=== PATIENT | female | born 1965 | race Caucasian/White ===

== ENCOUNTER → 2018-01-27 13:26 | Emergency (ER) | payer SELFPAY ==
[~2018-01-27 13:26] MED LIST: HYDROcodone/Acetaminophen 10/325 mg Tablet ONE; Ketorolac Tromethamine 30 MG/ML VIAL ONE; Ondansetron ODT 4 MG TAB ONE
== END | disposition home or self-care (01) ==
LOC: ERS 13:26
DX: M54.16 Radiculopathy, lumbar region (principal); I25.10 Atherosclerotic heart disease of native coronary artery without angina pectoris; F41.9 Anxiety disorder, unspecified; E11.9 Type 2 diabetes mellitus without complications
CPT/HCPCS: 96372; J1885; Q0162

== ENCOUNTER 2018-10-23 14:53 | Emergency (ER) | payer SELFPAY ==
[2018-10-23] MEDS ORDERED: Proparacaine 0.5% Opth 15 ML BOT ONE (15:51)
== END 2018-10-23 16:46 | disposition home or self-care (01) ==
LOC: ERS 14:53
DX: H10.9 Unspecified conjunctivitis (principal); I25.10 Atherosclerotic heart disease of native coronary artery without angina pectoris; E11.9 Type 2 diabetes mellitus without complications; F41.9 Anxiety disorder, unspecified
CPT/HCPCS: 36416; 99283

== ENCOUNTER 2019-07-11 12:04 | Inpatient (IN) | payer SELFPAY ==
[2019-07-11] MEDS ORDERED: Vancomycin 1 GM/200 ML BAG ONE (12:35)
[2019-07-11] MEDS ORDERED: Cefepime 2 GM VIAL ONE (12:35)
[2019-07-11 12:43] LABS: #Basophils 0.1 thou/uL (0.0-0.2); #Eosinphils 0.1 thou/uL (0.0-0.7); #Monocytes 0.5 thou/uL (0.11-0.59); #Neutrophils 6.2 thou/uL (1.40-6.50); %Basophils 0.7 % (0.0-1.0); %Eosinophils 1.3 % (0.0-10.0); %Lymphocytes 22.1 % (21.0-51.0); %Monocytes 5.9 % (0.0-10.0); Hemoglobin 11.8 g/dL (12.0-16.0); Mean Corpuscular Hemoglobin 27.1 pg (27.0-31.0); Mean Corpuscular Volume 82.2 fL (78.0-98.0); Mean Platelet Volume 7.5 fL (7.4-10.4); Platelet Count 408 thou/uL (130-400); RBC Distribution Width 11.8 % (11.5-14.5); Red Blood Cell (RBC) Count 4.35 mill/uL (4.20-5.40); White Blood Cell (WBC) Count 8.9 thou/uL (4.8-10.8)
--- NOTE | 2019-07-11 12:53 | RAD ---
RIGHT FOOT RADIOGRAPHS 3 VIEWS: DATE: 07/11/2019. PROVIDED CLINICAL HISTORY: Great toe pain and swelling. FINDINGS: There is soft tissue swelling and soft tissue gas seen involving the great toe distally. There is ly tic change involving the great toe distal phalanx, particularly the terminal tuft. The osseous struc tures demonstrate an otherwise unremarkable radiographic appearance. Vascular calcifications are see n. IMPRESSION: Lytic changes involving the great toe distal phalanx, compatible with osteomyelitis in the appropriat e clinical context. POS: PIOTR
[2019-07-11 13:04] LABS: ALT (SGPT) 15 U/L (8-55); AST (SGOT) 22 U/L (5-34); Albumin 3.9 g/dL (3.5-5.0); Alkaline Phosphatase 121 U/L (40-110); Anion Gap 14 mmol/L (10-20); BUN (Urea Nitrogen) 23 mg/dL (9.8-20.1); Bilirubin, Total 0.4 mg/dL (0.2-1.2); Calc. Creatinine Clearance 0 mL/min (70-130); Carbon Dioxide 27 mmol/L (22-29); Chloride 100 mmol/L (98-107); Estimated GFR-MDRD 51; Globulin 3.6 g/dL (2.4-3.5); Glucose 335 mg/dL (70-105); Potassium 4.7 mmol/L (3.5-5.1); Protein, Total 7.5 g/dL (6.0-8.3); Sodium 136 mmol/L (136-145)
[2019-07-11] MEDS ORDERED: Acetaminophen 325 MG TAB PO PRN (13:39)
[2019-07-11] MEDS ORDERED: Ondansetron PF 4 MG/2 ML Vial IVP PRN (13:39)
[2019-07-11] MEDS ORDERED: traMADol HCl 50 MG TAB PO PRN (13:45)
[2019-07-11 15:03] VITALS: BMI 30.2
[2019-07-11] MEDS ORDERED: [UNRECOGNIZED DRUG - MIXTURE] EA EYE PRN (16:04)
[2019-07-11] MEDS ORDERED: Dextrose 50% Abboject 50 ML SYRINGE SLOW IVP PRN (16:07)
[2019-07-11] MEDS ORDERED: Dextrose 5% in Water 1,000 ML IV PRN (16:07)
--- NOTE | 2019-07-11 16:33 | HP ---
CHIEF COMPLAINT: Toe pain. HISTORY OF PRESENT ILLNESS: A 54-year-old female with almost over 10 years of type 2 diabetes mellitus, presenting with toe infection on her right great toe. She had chronic callus on both feet, especially under the dorsal aspect of her great toe area that became blisters on her right toe leading to open sore and then for the last 10 days, it is getting worse to the level she had some blisters turned into the abscess-looking skin. She did not have any fever, cough, or chills. She states that her diabetic is well controlled. X-ray of the foot concerning for osteomyelitis on her great toe. REVIEW OF SYSTEMS: Denies any fever, night sweats, or chills. No productive cough, nausea, vomiting, abdominal pain, constipation, diarrhea, hematuria, or dysuria. Denies any headache or blurriness. Rest of the review of systems negative. No incontinence. No dysuria, hematuria , and hematochezia. ALLERGIES: NOT RECORDED. PAST MEDICAL HISTORY: Type 2 diabetes mellitus, coronary artery disease, hyperlipidemia, hypertension, and diabetic neuropathy. MEDICATIONS: 1. Plavix 75 mg daily. 2. Aspirin 81 mg daily. 3. Neurontin 1 tablet twice a day. 4. Insulin 100 units as sliding scale. 5. Hydrochlorothiazide 12.5 mg daily. 6. Metformin unknown dose 3 times a day. 7. Nitrostat 0.4 mg sublingual. 8. Lexapro 20 mg daily. 9. Lipitor 40 mg daily. SOCIAL HISTORY: The patient does not smoke or drink alcohol. FAMILY HISTORY: Significant for mother had multiple sclerosis, father diabetic and coronary artery disease, grandfather of lung cancer. PAST SURGICAL HISTORY: Tubal ligation and carpal tunnel syndrome and release. PHYSICAL EXAMINATION: VITAL SIGNS: Temperature 98.3, pulse 72, blood pressure 117/72, saturating 96% on room air. GENERAL: The patient is alert, oriented x4, well-developed, well-nourished, and obese side, not in any acute distress. CARDIOVASCULAR: Regular rate and rhythm without murmurs, rubs, or gallops. LUNGS: Clear to auscultation bilaterally. ABDOMEN: Soft, nontender, and nondistended. Good bowel sounds. EXTREMITIES: Right great toe has small skin scaffold as well as a few patches of white structures concerning for abscess. It is quite erythematic. No foul smelling. LABORATORY DATA: Significant for CBC in the normal range. Chemistry panel; creatinine 1.12. Her liver function tests in the normal range. CRP 0.65. Her sedimentation rate is 88. IMPRESSION AND PLAN: This is a 54-year-old female presenting with history of type 2 diabetes mellitus of over a decade duration, presenting with: 1. Right great toe osteomyelitis, diabetic neuropathy. 2. Type 2 diabetes mellitus. 3. Hypertension. 4. Hyperlipidemia. I started her on vancomycin and cefepime. Consulted Dr. Tan for evaluation for possible debridement, if deemed necessary. MRI may not be necessary as xray itself suggestive of osteomyelitis, unless surgery feels otherwise. Wound care consult. Continue with her home regimen for diabetic. Rest of the management based on the clinical course. Job ID: [id number] [facility]
[2019-07-11] MEDS: HumaLOG 300 UNITS/3 ML VIAL SC PRN ×2 (17:33→22:35)
[2019-07-11] MEDS: Gabapentin 300 MG CAP PO SCH (20:19)
[2019-07-11] MEDS ORDERED: Cefepime 1 GM in Sodium Chloride 0.9% 100 ML IVPB SCH (21:00)
[2019-07-11] MEDS ORDERED: Vancomycin 1 GM in Premix Bag 1 BAG IVPB SCH (21:00)
[2019-07-12] MEDS: Cefepime 1 GM in Sodium Chloride 0.9% 100 ML IVPB SCH ×2 (00:12→14:26)
[2019-07-12] MEDS: Vancomycin 1 GM in Premix Bag 1 BAG IVPB SCH ×2 (01:33→14:36)
[2019-07-12] MEDS ORDERED: Tetrahydrozoline 0.05% OPTH 15 ML BOT EA EYE PRN (06:45)
[2019-07-12] MEDS ORDERED: Dexamethasone 20 MG/5 ML VIAL ONE (09:06)
[2019-07-12] MEDS ORDERED: diphenhydrAMINE 50 MG/ML VIAL ONE (09:06)
[2019-07-12] MEDS ORDERED: EPHEDRINE 25 MG/5 ML SYRINGE ONE (09:06)
[2019-07-12] MEDS ORDERED: Succinylcholine Chloride 20 MG/ML 10 ml SYRINGE FS ONE (09:06)
[2019-07-12] MEDS ORDERED: PROPOFOL 200 MG/20 ML VIAL ONE (09:06)
[2019-07-12] MEDS ORDERED: Ondansetron PF 4 MG/2 ML Vial ONE (09:06)
[2019-07-12] MEDS ORDERED: Sodium Chloride 0.9% 1,000 ML IV SCH (09:45)
[2019-07-12] MEDS: Aspirin 81 mg Enteric Coated Tablet PO SCH (09:49)
[2019-07-12] MEDS: Atorvastatin Calcium 40 MG TAB PO SCH (09:49)
[2019-07-12] MEDS: Clopidogrel Bisulfate 75 MG TAB PO SCH (09:50)
[2019-07-12] MEDS: Gabapentin 300 MG CAP PO SCH ×2 (09:50→20:21)
[2019-07-12] MEDS: Escitalopram Oxalate 20 mg Tablet PO SCH (09:50)
[2019-07-12] MEDS: Hydrochlorothiazide 25 MG TAB PO SCH (09:50)
--- NOTE | 2019-07-12 10:14 | CON ---
DATE OF CONSULTATION: HISTORY OF PRESENT ILLNESS: Janett Mejía is a 54-year-old female, who lives in [place] with her daughter. She is from her for a year who has left and gone to [place]. She does not have any finances. She has been dealing with a right great toe ulceration. She is insulin-dependent diabetic at home. She has been admitted to the emergency room with a right great toe infection. X-rays reveal an osteomyelitis of the distal phalanx. She has sinus tract to the phalanx. On exam, edematous, cellulitic, swollen toe. She has been placed on vancomycin and cefepime. Fortunately, she is n.p.o. this morning and then plan is to amputate her right great toe through the proximal phalanx. A wound VAC will be applied. She will be on intravenous antibiotics in the hospital and sent home with oral antibiotics appropriate for cultures on discharge. She states that she has transportation to go to [facility] twice a week for wound VAC care, but if that is not possible, she could be converted to a saline wet-to-dry dressing, and of course, we will continue follow up in my office. If she does not have continued outpatient wound VAC care, then she will follow up in my office and not wound care. ALLERGIES: NO MEDICAL. TOBACCO: None. ALCOHOL: None. MEDICATIONS: In the hospital: 1. Vancomycin. 2. Cefepime. Outpatient: 1. Plavix. 2. Aspirin. 3. Gabapentin. 4. Eye drops. 5. Insulin. 6. Hydrochlorothiazide. 7. Metformin. 8. Nitroglycerin. 9. Atorvastatin. 10. Lexapro. She does not take nitroglycerin at home. She has occasional chest discomfort. PAST SURGICAL HISTORY: Two myringotomies and a carpal tunnel. PAST MEDICAL HISTORY: Diabetes mellitus type 2, elevated cholesterol, coronary artery disease. She states 2 years ago in [place], she had a catheterization. She has 100% blockage in one coronary artery and partial blockage in the other two. She says she was not a candidate for stenting or angioplasty or bypass. She states the disease was too distal. She is treated medically. She states she has never taken nitroglycerin, although she has occasional chest discomfort. She has not established a glove brusher locally. REVIEW OF SYSTEMS: Ten-point noncontributory. PHYSICAL EXAMINATION: VITAL SIGNS: Height 5 feet 2 inches, weight 165 pounds, and BMI 30. Temperature 98 degrees, pulse 65, and blood pressure 122/76. HEAD, EARS, EYES, NOSE, AND THROAT: Unremarkable. LUNGS: Clear to auscultation. CARDIAC: Regular rate and rhythm without murmur or gallop. ABDOMEN: Soft and nontender. No masses. EXTREMITIES: Palpable femoral, popliteal, dorsalis pedis, and posterior tibial pulses bilaterally. Right great toe shows changes of osteomyelitis with edema and cellulitis. She has a sinus tract to the distal phalanx. NEUROLOGIC: Intact. Cranial nerves intact. Palpable pulses. LABORATORY DATA: Sodium 136, potassium 4.7, BUN 23, and creatinine 1.12. White count 8 and hemoglobin 11.8. ASSESSMENT AND PLAN: 1. Osteomyelitis, right great toe with sinus tract. We would recommend partial amputation of the right great toe with wound VAC application and continuation of intravenous antibiotics in the hospital, conversion to oral antibiotics once discharged home later this week, outpatient wound care with a VAC, but if the VAC cannot be performed due to transportation problems, then alternative wound care problems could be administered and the patient could be taught, I will plan to follow her up in my office. 2. Coronary artery disease, stable. 3. Diabetes mellitus, insulin dependent. 4. Elevated cholesterol. Job ID: [id number]
[2019-07-12] MEDS ORDERED: Fentanyl 100 MCG/2 ML VIAL ONE (11:10)
[2019-07-12] MEDS: HumuLIN 70/30 (300 UNITS/3 ML VIAL) SC SCH ×2 (11:30→16:48)
[2019-07-12] MEDS ORDERED: Acetaminophen 500 MG TAB PO PRN (11:30)
[2019-07-12] MEDS ORDERED: traMADol HCl 50 MG TAB PO PRN (11:30)
--- NOTE | 2019-07-12 12:13 | OP ---
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 POSTOPERATIVE DIAGNOSIS: Right great toe diabetic gangrene with osteomyelitis of the distal phalanx and multiple neuropathic ulcers and sinuses. PROCEDURE PERFORMED: Amputation of right great toe through the proximal phalanx. ANESTHESIA: General. Wound Care arrived to place wound VAC, healing by secondary intention. Good blood supply. No PAD. DESCRIPTION OF PROCEDURE: The patient was taken to the operating room where under general anesthesia, right lower extremity was prepared with ChloraPrep and draped in routine fashion. Patient had osteomyelitis of the distal phalanx with multiple ulcers and sinus tracts. This was nonsalvageable and edematous. Wound cultures obtained. Amputation of the right great toe through the proximal phalanx achieved by making a fishmouth incision, preserving skin as possible, resecting the phalanx with a bone cutter and resecting it proximally with a rongeur, irrigating, resecting connective tissue, gaining hemostasis with cautery. There was excellent pulsatile bleeding. Wound Care Team arrived to place wound VAC. The patient tolerated the procedure well. Job ID: [id number]
--- NOTE | 2019-07-12 13:36 | PDOC.HOSPP ---
- Subjective Encounter Date: 07/12/19 Encounter Time: 08:45 Subjective: pt is sleeping, on awakening, feels ok, no acute c/o. NPO., talk to Dr. Tan. plan for sux intervention today. - Objective Vital Signs & Weight: Vital Signs (12 hours) Temp Pulse Resp BP Pulse Ox 07/12/19 08:06 96 07/12/19 07:25 98.0 F 65 16 122/76 96 07/12/19 04:00 98.4 F 60 16 127/76 97 Weight Weight 165 lb 2.02 oz I&O: 07/11/19 07/12/19 07/13/19 06:59 06:59 06:59 Intake Total 1040 Balance 1040 Result Diagrams: 07/11/19 12:29 07/11/19 12:29 Additional Labs: Accuchecks 07/12/19 07/11/19 07/11/19 04:10 20:36 16:47 POC Glucose 277 H 357 H 352 H Hospitalist ROS - Medication Medications: Active Medications Generic Name Dose Route Start Last Admin Trade Name Freq PRN Reason Stop Dose Admin Aspirin 81 mg 07/12/19 09:00 07/12/19 09:49 Ecotrin PO Not Given DAILY [facility] Atorvastatin Calcium 40 mg 07/12/19 09:00 07/12/19 09:49 Lipitor PO Not Given DAILY [facility] Clopidogrel Bisulfate 75 mg 07/12/19 09:00 07/12/19 09:50 Plavix PO Not Given DAILY [facility] Escitalopram Oxalate 20 mg 07/12/19 09:00 07/12/19 09:50 Lexapro PO Not Given DAILY [facility] Gabapentin 300 mg 07/11/19 21:00 07/12/19 09:50 Neurontin PO Not Given BID [facility] Hydrochlorothiazide 12.5 mg 07/12/19 09:00 07/12/19 09:50 Hydrochlorothiazide PO Not Given DAILY [facility] Vancomycin HCl 1 gm/ Device 200 mls @ 200 mls/hr 07/12/19 01:00 07/12/19 01: 33 IVPB 200 mls 0100,1300 [facility] Administration Cefepime HCl 1 gm/ Sodium 100 mls @ 200 mls/hr 07/12/19 01:00 07/12/19 00:12 Chloride IVPB 100 mls 0100,1300 [facility] Administration Insulin Human Lispro 0 units 07/11/19 16:07 07/11/19 17:33 Humalog SC 6 unit .MILD SLIDING SCALE PRN Administration Mild Correctional Scale Insulin Human Lispro 0 units 07/11/19 21:42 07/11/19 22:35 Humalog SC 5 unit .BEDTIME SLIDING SC PRN Administration Bedtime Correctional Scale - Exam General Appearance: NAD, awake alert ENT: normocephalic atraumatic Neck: supple Heart: RRR Respiratory: CTAB, normal chest expansion Gastrointestinal: soft, normal bowel sounds Extremities - other findings: r. foot - dry dressing. Hosp A/P - Plan r. great toe OM -on vanc + cefepime - hung for sux intervention today DM2 - BG is high, holding metformin - initiated scheduled insulin + SSI. HTN -normotensive. Full code.
[2019-07-12] MEDS: HumaLOG 300 UNITS/3 ML VIAL SC PRN ×3 (14:27→23:35)
[2019-07-12] MEDS: Enoxaparin Sodium 40 MG/0.4 ML SYRINGE SC SCH (20:24)
[2019-07-13 00:31] LABS: Vancomycin, Trough 16.2 ug/mL
[2019-07-13] MEDS: Cefepime 1 GM in Sodium Chloride 0.9% 100 ML IVPB SCH ×2 (00:41→11:59)
[2019-07-13] MEDS: Vancomycin 1 GM in Premix Bag 1 BAG IVPB SCH ×2 (01:42→12:29)
[2019-07-13] MEDS: HumaLOG 300 UNITS/3 ML VIAL SC PRN ×4 (01:46→17:42)
[2019-07-13] MEDS: Hydrochlorothiazide 25 MG TAB PO SCH (08:24)
[2019-07-13] MEDS: Atorvastatin Calcium 40 MG TAB PO SCH (08:24)
[2019-07-13] MEDS: Escitalopram Oxalate 20 mg Tablet PO SCH (08:24)
[2019-07-13] MEDS: Gabapentin 300 MG CAP PO SCH ×2 (08:24→20:05)
[2019-07-13] MEDS: HumuLIN 70/30 (300 UNITS/3 ML VIAL) SC SCH ×3 (08:25→17:42)
[2019-07-13] MEDS: Clopidogrel Bisulfate 75 MG TAB PO SCH (11:49)
[2019-07-13] MEDS: Aspirin 81 mg Enteric Coated Tablet PO SCH (11:49)
--- NOTE | 2019-07-13 11:56 | PRG ---
DATE OF SERVICE: 07/13/2019 Janett Mejía is doing well after amputation of the right great toe for osteomyelitis and severe diabetic infection. The wound VAC is in place. She is on intravenous antibiotics. Cultures are pending. Plan is to view her wound tomorrow and to arrange outpatient wound VAC care, [facility]. She has transportation to go twice a week she states. She can be discharged later in the week on oral antibiotics once wound VAC is approved. We will view her wound tomorrow. Job ID: [id number]
--- NOTE | 2019-07-13 13:49 | PDOC.HOSPP ---
- Subjective Encounter Date: 07/13/19 Encounter Time: 11:00 Subjective: having her breakfast, wound vac-drains. no acute c/o. - Objective Vital Signs & Weight: Vital Signs (12 hours) Temp Pulse Resp BP Pulse Ox 07/13/19 11:35 98.4 F 67 18 112/74 94 L 07/13/19 08:00 97 07/13/19 07:49 97.5 F L 69 18 128/74 97 07/13/19 04:00 98.2 F 70 18 126/68 97 Weight Admit Weight 165 lb Weight 165 lb 2.02 oz I&O: 07/12/19 07/13/19 07/14/19 06:59 06:59 06:59 Intake Total 1040 780 Balance 1040 780 Result Diagrams: 07/11/19 12:29 07/11/19 12:29 Additional Labs: Accuchecks 07/13/19 07/13/19 07/13/19 11:38 06:08 00:52 POC Glucose 212 H 294 H 329 H 07/12/19 07/12/19 07/12/19 20:43 16:42 14:16 POC Glucose 402 H 444 H 341 H Hospitalist ROS - Medication Medications: Active Medications Generic Name Dose Route Start Last Admin Trade Name Freq PRN Reason Stop Dose Admin Aspirin 81 mg 07/12/19 09:00 07/13/19 11:49 Ecotrin PO 81 mg DAILY [facility] Administration Atorvastatin Calcium 40 mg 07/12/19 09:00 07/13/19 08:24 Lipitor PO 40 mg DAILY [facility] Administration Clopidogrel Bisulfate 75 mg 07/12/19 09:00 07/13/19 11:49 Plavix PO 75 mg DAILY [facility] Administration Enoxaparin Sodium 40 mg 07/12/19 21:00 07/12/19 20:24 Lovenox SC Not Given 2100 [facility] Escitalopram Oxalate 20 mg 07/12/19 09:00 07/13/19 08:24 Lexapro PO 20 mg DAILY [facility] Administration Gabapentin 300 mg 07/11/19 21:00 07/13/19 08:24 Neurontin PO 300 mg BID [facility] Administration Hydrochlorothiazide 12.5 mg 07/12/19 09:00 07/13/19 08:24 Hydrochlorothiazide PO 12.5 mg DAILY [facility] Administration Vancomycin HCl 1 gm/ Device 200 mls @ 200 mls/hr 07/12/19 01:00 07/13/19 12: 29 IVPB 200 mls 0100,1300 [facility] Administration Cefepime HCl 1 gm/ Sodium 100 mls @ 200 mls/hr 07/12/19 01:00 07/13/19 11:59 Chloride IVPB 100 mls 0100,1300 [facility] Administration Insulin Human Isoph/Insulin Regular 10 units 07/12/19 11:30 07/13/19 11:50 Humulin 70/30 SC 10 unit AC [facility] Administration Insulin Human Lispro 0 units 07/11/19 16:07 07/13/19 11:50 Humalog SC 3 unit .MILD SLIDING SCALE PRN Administration Mild Correctional Scale Insulin Human Lispro 0 units 07/11/19 21:42 07/13/19 01:46 Humalog SC 4 unit .BEDTIME SLIDING SC PRN Administration Bedtime Correctional Scale Sodium Chloride 10 ml 07/12/19 09:00 07/13/19 08:27 Flush - Normal Saline IVF 10 ml Q12HR [facility] Administration - Exam General Appearance: NAD, awake alert Eye: PERRL ENT: normocephalic atraumatic Neck: supple Heart: RRR Respiratory: CTAB, normal chest expansion Gastrointestinal: soft, normal bowel sounds Extremities - other findings: R. foot in dressing, wound vac Hosp A/P - Plan r. great toe OM -on vanc + cefepime - hung for sux intervention today - s/p great toe amputation-6th -home wound vac - [facility] wound care clinic follow up. - fw on the vane result -home w.. either augmentin vs.. bactrim x 1 week DM2 - BG is high, holding metformin - initiated scheduled insulin + SSI. HTN -normotensive. Full code.
[2019-07-13] MEDS: Enoxaparin Sodium 40 MG/0.4 ML SYRINGE SC SCH (20:07)
[2019-07-14] MEDS: Cefepime 1 GM in Sodium Chloride 0.9% 100 ML IVPB SCH (00:16)
[2019-07-14] MEDS: Vancomycin 1 GM in Premix Bag 1 BAG IVPB SCH (01:39)
[2019-07-14] MEDS: HumaLOG 300 UNITS/3 ML VIAL SC PRN ×2 (05:40→12:48)
[2019-07-14] MEDS: Hydrochlorothiazide 25 MG TAB PO SCH (08:01)
[2019-07-14] MEDS: Clopidogrel Bisulfate 75 MG TAB PO SCH (08:01)
[2019-07-14] MEDS: Aspirin 81 mg Enteric Coated Tablet PO SCH (08:01)
[2019-07-14] MEDS: Atorvastatin Calcium 40 MG TAB PO SCH (08:01)
[2019-07-14] MEDS: Gabapentin 300 MG CAP PO SCH ×2 (08:01→20:17)
[2019-07-14] MEDS: Escitalopram Oxalate 20 mg Tablet PO SCH (08:02)
[2019-07-14] MEDS: HumuLIN 70/30 (300 UNITS/3 ML VIAL) SC SCH ×3 (08:02→18:35)
--- NOTE | 2019-07-14 10:58 | PRG ---
DATE OF SERVICE: 07/14/2019 Ms. Mejía is doing well. Her foot wound looks good today. It is granulating, healing. At this point, cultures have revealed Streptococcus and Proteus mirabilis. She is not allergic to penicillin. We would recommend discontinue her IV antibiotics and change to Augmentin. She can be discharged home anytime on oral antibiotics for 10 days from a surgery standpoint. She has transportation resources to go to [facility] twice a week, and once the wound VAC outpatient has been approved for [facility] use, then she can be discharged home with followup for wound VAC application twice a week. She can see me in the office in 2 to 3 weeks. I would recommend Tylenol and Ultram for pain. The patient is ambulating with physical therapy. At this point, I will see her as needed this hospitalization. Please call if necessary. Job ID: [id number]
--- NOTE | 2019-07-14 13:31 | PDOC.HOSPP ---
- Subjective Encounter Date: 07/14/19 Encounter Time: 10:00 Subjective: doing well, vane reviewed, abx fm IV to po. - Objective Vital Signs & Weight: Vital Signs (12 hours) Temp Pulse Resp BP Pulse Ox 07/14/19 11:00 97.8 F 70 17 152/85 H 97 07/14/19 08:00 97 07/14/19 07:50 98.2 F 84 19 137/79 97 07/14/19 03:38 98.4 F 63 16 152/80 H 98 Weight Admit Weight 165 lb Weight 165 lb 2.02 oz I&O: 07/13/19 07/14/19 07/15/19 06:59 06:59 06:59 Intake Total 780 1600 Balance 780 1600 Result Diagrams: 07/11/19 12:29 07/11/19 12:29 Additional Labs: Accuchecks 07/14/19 07/14/19 07/13/19 12:02 05:32 19:40 POC Glucose 213 H 203 H 197 H 07/13/19 16:10 POC Glucose 297 H Hospitalist ROS - Medication Medications: Active Medications Generic Name Dose Route Start Last Admin Trade Name Freq PRN Reason Stop Dose Admin Acetaminophen 1,000 mg 07/12/19 11:30 07/13/19 20:08 Tylenol PO 1,000 mg Q6H PRN Administration Moderate to Severe Pain (6-10) Aspirin 81 mg 07/12/19 09:00 07/14/19 08:01 Ecotrin PO 81 mg DAILY [facility] Administration Atorvastatin Calcium 40 mg 07/12/19 09:00 07/14/19 08:01 Lipitor PO 40 mg DAILY [facility] Administration Clopidogrel Bisulfate 75 mg 07/12/19 09:00 07/14/19 08:01 Plavix PO 75 mg DAILY [facility] Administration Enoxaparin Sodium 40 mg 07/12/19 21:00 07/13/19 20:07 Lovenox SC 40 mg 2100 [facility] Administration Escitalopram Oxalate 20 mg 07/12/19 09:00 07/14/19 08:02 Lexapro PO 20 mg DAILY [facility] Administration Gabapentin 300 mg 07/11/19 21:00 07/14/19 08:01 Neurontin PO 300 mg BID [facility] Administration Hydrochlorothiazide 12.5 mg 07/12/19 09:00 07/14/19 08:01 Hydrochlorothiazide PO 12.5 mg DAILY [facility] Administration Insulin Human Isoph/Insulin Regular 10 units 07/12/19 11:30 07/14/19 12:48 Humulin 70/30 SC 10 unit AC [facility] Administration Insulin Human Lispro 0 units 07/11/19 16:07 07/14/19 12:48 Humalog SC 3 unit .MILD SLIDING SCALE PRN Administration Mild Correctional Scale Insulin Human Lispro 0 units 07/11/19 21:42 07/13/19 01:46 Humalog SC 4 unit .BEDTIME SLIDING SC PRN Administration Bedtime Correctional Scale Sodium Chloride 10 ml 07/12/19 09:00 07/14/19 08:02 Flush - Normal Saline IVF 10 ml Q12HR [facility] Administration Tramadol HCl 100 mg 07/12/19 11:30 07/14/19 09:03 Ultram PO 100 mg Q6H PRN Administration Pain - Exam General Appearance: NAD, awake alert Eye: PERRL ENT: normocephalic atraumatic Neck: supple Heart: RRR Respiratory: CTAB, normal chest expansion Extremities - other findings: r. foot dressing Hosp A/P - Plan r. great toe OM -on vanc + cefepime - hung for sux intervention today - s/p great toe amputation-6th -home wound vac - [facility] wound care clinic follow up. - fw on the vane result -home w.. either augmentin vs.. bactrim x 1 week DM2 - BG is high, holding metformin - initiated scheduled insulin + SSI. HTN -normotensive. Full code. - abx shanged to PO augmentin x 10 days pending outpt wound vac -once it is obtained , md home with follow up with Dr. Tan in 1 week.
[2019-07-14] MEDS: Amoxicillin/Potassium Clav 500 MG TAB PO SCH (20:16)
[2019-07-14] MEDS: Enoxaparin Sodium 40 MG/0.4 ML SYRINGE SC SCH (20:17)
[2019-07-15 06:35] LABS: #Basophils 0.1 thou/uL (0.0-0.2); #Eosinphils 0.2 thou/uL (0.0-0.7); #Lymphocytes 2.7 thou/uL (1.20-3.40); #Monocytes 0.5 thou/uL (0.11-0.59); #Neutrophils 3.5 thou/uL (1.40-6.50); %Basophils 1.4 % (0.0-1.0); %Eosinophils 2.7 % (0.0-10.0); %Lymphocytes 39.1 % (21.0-51.0); %Monocytes 6.5 % (0.0-10.0); %Neutrophils 50.3 % (42.0-75.0); Hemoglobin 9.9 g/dL (12.0-16.0); Mean Corpuscular HGB CONC 33.7 g/dL (32.0-36.0); Mean Corpuscular Hemoglobin 27.8 pg (27.0-31.0); Mean Corpuscular Volume 82.5 fL (78.0-98.0); Mean Platelet Volume 7.8 fL (7.4-10.4); Platelet Count 285 thou/uL (130-400); RBC Distribution Width 12.4 % (11.5-14.5); Red Blood Cell (RBC) Count 3.58 mill/uL (4.20-5.40)
[2019-07-15] MEDS: HumuLIN 70/30 (300 UNITS/3 ML VIAL) SC SCH ×3 (07:59→17:43)
[2019-07-15] MEDS: Aspirin 81 mg Enteric Coated Tablet PO SCH (08:00)
[2019-07-15] MEDS: Hydrochlorothiazide 25 MG TAB PO SCH (08:00)
[2019-07-15] MEDS: Escitalopram Oxalate 20 mg Tablet PO SCH (08:00)
[2019-07-15] MEDS: Gabapentin 300 MG CAP PO SCH ×2 (08:00→20:07)
[2019-07-15] MEDS: Amoxicillin/Potassium Clav 500 MG TAB PO SCH ×2 (08:00→20:07)
[2019-07-15] MEDS: Clopidogrel Bisulfate 75 MG TAB PO SCH (08:00)
[2019-07-15] MEDS: Atorvastatin Calcium 40 MG TAB PO SCH (08:00)
[2019-07-15] MEDS ORDERED: Magnesium Citrate 300 ML BOT PO SCH (08:45)
[2019-07-15] MEDS: HumaLOG 300 UNITS/3 ML VIAL SC PRN (11:57)
--- NOTE | 2019-07-15 19:11 | PDOC.HOSPP ---
- Subjective Encounter Date: 07/15/19 Encounter Time: 19:10 Subjective: f/u for R great toe gangrene due to DM s/p amputation POD #3 on current Augmentin. Awaiting approval and coordination for outpt wound vac. - Objective Vital Signs & Weight: Vital Signs (12 hours) Temp Pulse Resp BP BP Pulse Ox 07/15/19 16:28 104/68 07/15/19 16:18 98.0 F 65 14 87/51 L 98 07/15/19 11:33 99 07/15/19 11:03 98.0 F 65 14 121/77 77 L 07/15/19 07:33 98.5 F 65 16 127/79 97 Weight Admit Weight 165 lb Weight 165 lb 2.02 oz I&O: 07/14/19 07/15/19 07/16/19 06:59 06:59 06:59 Intake Total 1600 480 Balance 1600 480 Result Diagrams: 07/15/19 06:04 07/11/19 12:29 Additional Labs: Accuchecks 07/15/19 07/15/19 07/15/19 16:38 11:26 04:27 POC Glucose 155 H 243 H 193 H 07/14/19 19:47 POC Glucose 107 Microbiology 07/12/19 11:37 Toe - E swab Bacterial Culture - Preliminary 07/12/19 11:37 Toe - E swab Anaerobic Culture - Preliminary Streptococcus agalactiae Gp. B Proteus mirabilis 07/11/19 12:33 Venous blood - Left Hand Blood Culture - Preliminary NO GROWTH AT 48 HOURS 07/11/19 12:29 Venous blood - Right Arm Blood Culture - Preliminary NO GROWTH AT 48 HOURS Laboratory Tests 07/11/19 12:29 Hgb 11.8 L Hospitalist ROS - Medication Medications: Active Medications Generic Name Dose Route Start Last Admin Trade Name Freq PRN Reason Stop Dose Admin Acetaminophen 1,000 mg 07/12/19 11:30 07/13/19 20:08 Tylenol PO 1,000 mg Q6H PRN Administration Moderate to Severe Pain (6-10) Amoxicillin/Clavulanate Potassium 500 mg 07/14/19 21:00 07/15/19 08:00 Augmentin PO 500 mg Q12HR [facility] Administration Aspirin 81 mg 07/12/19 09:00 07/15/19 08:00 Ecotrin PO 81 mg DAILY [facility] Administration Atorvastatin Calcium 40 mg 07/12/19 09:00 07/15/19 08:00 Lipitor PO 40 mg DAILY [facility] Administration Clopidogrel Bisulfate 75 mg 07/12/19 09:00 07/15/19 08:00 Plavix PO 75 mg DAILY [facility] Administration Enoxaparin Sodium 40 mg 07/12/19 21:00 07/14/19 20:17 Lovenox SC 40 mg 2100 [facility] Administration Escitalopram Oxalate 20 mg 07/12/19 09:00 07/15/19 08:00 Lexapro PO 20 mg DAILY [facility] Administration Gabapentin 300 mg 07/11/19 21:00 07/15/19 08:00 Neurontin PO 300 mg BID [facility] Administration Hydrochlorothiazide 12.5 mg 07/12/19 09:00 07/15/19 08:00 Hydrochlorothiazide PO 12.5 mg DAILY [facility] Administration Insulin Human Isoph/Insulin Regular 10 units 07/12/19 11:30 07/15/19 17:43 Humulin 70/30 SC 10 unit AC [facility] Administration Insulin Human Lispro 0 units 07/11/19 16:07 07/15/19 11:57 Humalog SC 3 unit .MILD SLIDING SCALE PRN Administration Mild Correctional Scale Insulin Human Lispro 0 units 07/11/19 21:42 07/13/19 01:46 Humalog SC 4 unit .BEDTIME SLIDING SC PRN Administration Bedtime Correctional Scale Sodium Chloride 10 ml 07/12/19 09:00 07/15/19 08:01 Flush - Normal Saline IVF 10 ml Q12HR [facility] Administration Tramadol HCl 100 mg 07/12/19 11:30 07/14/19 09:03 Ultram PO 100 mg Q6H PRN Administration Pain - Exam General Appearance: NAD, awake alert Eye: PERRL, anicteric sclera ENT: normocephalic atraumatic, no oropharyngeal lesions Neck: supple, symmetric, no JVD, no thyromegaly, no lymphadenopathy Heart: RRR, no murmur, no gallops, no rubs Heart - other findings: S1, S2 Respiratory: CTAB, no wheezes, no rales, no ronchi, normal chest expansion Gastrointestinal: soft, non-tender, non-distended, normal bowel sounds, no palpable masses Extremities: no cyanosis, no edema Extremities - other findings: R great toe amputation with wound vac in place Skin: normal turgor Neurological: cranial nerve grossly intact, no new deficit Musculoskeletal: normal tone, normal strength Psychiatric: normal affect, A&O x 3 Hosp A/P (1) Gangrene of toe of right foot Code(s): I96 - GANGRENE, NOT ELSEWHERE CLASSIFIED Status: Acute Plan: s/p R great toe amputation POD #3, continue local WCT, plan for outpt wound vac , Augmentin x 10 days (2) Osteomyelitis of toe of right foot Code(s): M86.9 - OSTEOMYELITIS, UNSPECIFIED Status: Acute Plan: See above (3) DM type 2 with diabetic peripheral neuropathy Code(s): E11.42 - TYPE 2 DIABETES MELLITUS WITH DIABETIC POLYNEUROPATHY Status : Chronic Plan: ISS, Metformin, ADA (4) HTN (hypertension) Code(s): I10 - ESSENTIAL (PRIMARY) HYPERTENSION Status: Chronic Qualifiers: Hypertension type: essential hypertension Qualified Code(s): I10 - Essential (primary) hypertension Plan: Relative hypotension, monitor BP trend, may need to titrate current regimen, asymptomatic - Plan continue antibiotics, PT/OT, social welfare administrator, out of bed/ambulate Stable overall Continue WCT for local care Wound vac application and plan for outpt wound vac Continue Augmentin Likely home in 24h
[2019-07-15] MEDS: Enoxaparin Sodium 40 MG/0.4 ML SYRINGE SC SCH (20:06)
[2019-07-16 06:51] LABS: Anion Gap 8 mmol/L (10-20); BUN (Urea Nitrogen) 19 mg/dL (9.8-20.1); Calc. Creatinine Clearance 99 mL/min (70-130); Calcium 8.6 mg/dL (7.8-10.44); Carbon Dioxide 31 mmol/L (22-29); Chloride 102 mmol/L (98-107); Estimated GFR-MDRD 78; Glucose 123 mg/dL (70-105); Potassium 4.1 mmol/L (3.5-5.1); Sodium 137 mmol/L (136-145)
[2019-07-16 07:13] VITALS: BP 114/64; TEMP 98.3
[2019-07-16] MEDS: Amoxicillin/Potassium Clav 500 MG TAB PO SCH (08:15)
[2019-07-16] MEDS: Escitalopram Oxalate 20 mg Tablet PO SCH (08:16)
[2019-07-16] MEDS: Clopidogrel Bisulfate 75 MG TAB PO SCH (08:16)
[2019-07-16] MEDS: Hydrochlorothiazide 25 MG TAB PO SCH (08:16)
[2019-07-16] MEDS: Gabapentin 300 MG CAP PO SCH (08:16)
[2019-07-16] MEDS: Atorvastatin Calcium 40 MG TAB PO SCH (08:16)
[2019-07-16] MEDS: Aspirin 81 mg Enteric Coated Tablet PO SCH (08:16)
[2019-07-16] MEDS: HumuLIN 70/30 (300 UNITS/3 ML VIAL) SC SCH ×2 (08:46→11:14)
[2019-07-16] MEDS: HumaLOG 300 UNITS/3 ML VIAL SC PRN (11:14)
--- NOTE | 2019-07-16 11:15 | DIS ---
DATE OF ADMISSION: 07/11/2019 DATE OF DISCHARGE: 07/16/2019 DISCHARGE DIAGNOSES: 1. Gangrene of the right great toe, status post amputation on 07/12/2019. 2. Osteomyelitis of the right great toe. 3. Diabetes mellitus, type 2 with diabetic peripheral neuropathy. 4. Hypertension, stable. CONSULTATIONS: Dr. Tan with General Surgery Service. PERTINENT LABORATORY AND X-RAY FINDINGS: Creatinine ranged between 0.77 to 1.12. CRP 0.65. CBC showed a white blood cell count ranging between 7.0 to 8.9. ESR 88. Blood cultures x2 dated 07/11/2019, showed no growth at 48 hours. Right great toe wound culture dated 07/12/2019, showed Streptococcus agalactiae group B and Proteus species. Plain radiographs of the right foot dated 07/11/2019, showed lytic changes involving the distal phalanx of the great toe compatible with osteomyelitis. HOSPITAL COURSE: The patient was initially admitted after presenting with right great toe pain in the context of diabetes mellitus with peripheral neuropathy and chronic ulceration with evidence of osteomyelitis on plain radiographs of the right great toe. The patient underwent general evaluation with gangrenous changes of the toe noted in addition to the radiographic confirmation of osteomyelitis. The patient was evaluated by General Surgery Service and taken for primary amputation of the right great toe through the proximal phalanx on 07/12/2019. The patient received local wound care and wound VAC application postoperatively with plans for outpatient wound care clinic followup. The patient tolerated the procedure well with adequate pain control postoperatively. Vital signs remained stable and the patient overall clinically improved. I have examined the patient at the time of discharge and discussed followup instructions. The patient verbalized understanding and in agreement and ready for discharge on 07/16/2019. DISCHARGE MEDICATIONS: 1. Enteric-coated aspirin 81 mg p.o. daily. 2. Lipitor 40 mg p.o. daily. 3. Plavix 75 mg p.o. daily. 4. Lexapro 20 mg p.o. daily. 5. Neurontin 300 mg p.o. b.i.d. 6. Hydrochlorothiazide 12.5 mg p.o. daily. 7. NPH insulin 10 units subcutaneously a.c. 8. Metformin 500 mg p.o. t.i.d. 9. Nitroglycerin 0.4 mg sublingually q.5 minutes p.r.n. chest pain. 10. Augmentin 500 mg p.o. b.i.d. x10 days. 11. Tramadol 50 mg p.o. q.6 hours p.r.n. pain. FOLLOWUP: The patient may follow up with [facility] within 7 days of discharge. The patient will follow up with Dr. Tan in 2 to 3 weeks after discharge. The patient will follow up with the Outpatient [facility] on 07/19/2019 at 1:00 p.m. CONDITION ON DISCHARGE: Stable. ACTIVITY: Ad-nataliia. DIET: Heart healthy and ADA. SPECIAL INSTRUCTIONS: Outpatient wound VAC application with Wound Care Clinic followup. CODE STATUS: Full. DISPOSITION: Home on 07/16/2019. TIME SPENT: Total time preparing and coordinating discharge, 35 minutes. Job ID: [id number]
== END 2019-07-16 12:49 | disposition home or self-care (01) | DRG 256 ==
LOC: ERS 12:04 → T4-B 13:41
PROVIDERS: ADMIT Internal Medicine; ATTEND Internal Medicine
PROC: 0Y6Q0Z1 Detachment at Left 1st Toe, High, Open Approach (ICD-10-PCS; principal; 2019-07-12)
DX: E11.52 Type 2 diabetes mellitus with diabetic peripheral angiopathy with gangrene (principal); I96 Gangrene, not elsewhere classified; M86.8X7 Other osteomyelitis, ankle and foot; I10 Essential (primary) hypertension; E11.69 Type 2 diabetes mellitus with other specified complication; F41.9 Anxiety disorder, unspecified; E78.5 Hyperlipidemia, unspecified; E11.621 Type 2 diabetes mellitus with foot ulcer; L97.529 Non-pressure chronic ulcer of other part of left foot with unspecified severity; E11.42 Type 2 diabetes mellitus with diabetic polyneuropathy; Z79.4 Long term (current) use of insulin; Z98.51 Tubal ligation status
CPT/HCPCS: 36415; 36416; 80048; 80053; 80202; 83605; 85025; 85652; 86140; 87040; 87070; 87077; 87186; 87205; 88305; 88311; 93005; 93010; 96365; 96367; J0692; J1100; J1200; J1650; J1815; J2405; J2704; J3010; J3370; J3490

== ENCOUNTER 2020-01-19 13:39 | Outpatient (CLI) | payer OTHER | END 2020-01-19 13:40 | disposition home or self-care (01) | LOC: ULT 13:39 | PROVIDERS: ATTEND Psychiatry & Neurology Neurology | DX: Z02.71 Encounter for disability determination (principal); I73.9 Peripheral vascular disease, unspecified | CPT/HCPCS: 93922 ==

== ENCOUNTER 2020-04-13 06:37 | Outpatient (CLI) | payer OTHER ==
[2020-04-13 17:03] LABS: SARS-CoV-2 MS2 Positive; SARS-CoV-2 N Gene Negative; SARS-CoV-2 S Gene Negative; SARS-CoV-2 by NAA Not Detected (NotDetected); SARS-CoV-2 orf1ab Negative
== END 2020-04-13 06:38 | disposition home or self-care (01) ==
LOC: LABBT 06:37
PROVIDERS: ATTEND Family Medicine
DX: Z01.812 Encounter for preprocedural laboratory examination (principal); Z20.822 Contact with and (suspected) exposure to COVID-19; H43.12 Vitreous hemorrhage, left eye; H54.7 Unspecified visual loss
CPT/HCPCS: 87635; U0003

== ENCOUNTER 2020-04-18 07:59 | Day surgery (SDC) | payer OTHER ==
[2020-04-14 13:27] VITALS: BMI 34.2
[~2020-04-18 07:59] MED LIST changes: +EPINEPHrine 0.3 MG in Ophthalmic Irrigation Solution 500 ML IRR SCH; +Fentanyl 100 MCG/2 ML VIAL ONE; -HYDROcodone/Acetaminophen 10/325 mg Tablet ONE; -Ketorolac Tromethamine 30 MG/ML VIAL ONE; +Midazolam HCl 2 mg/2 ml Vial ONE; -Ondansetron ODT 4 MG TAB ONE
[2020-04-18] MEDS ORDERED: Phenylephrine 2.5% Ophth Soln 5 ML BOT ONE (08:15)
[2020-04-18] MEDS ORDERED: Cyclopentolate 1% Opth Drop 2 ML BOT ONE (08:15)
[2020-04-18] MEDS ORDERED: Insulin Regular 300 UNITS/3 ML VIAL ONE (08:35)
[2020-04-18] MEDS ORDERED: Maxitrol 0.1% Opth Oint 3.5 GM TUBE ONE (11:12)
[2020-04-18] MEDS ORDERED: CEFAZOLIN 1 GM VIAL ONE (11:12)
[2020-04-18] MEDS ORDERED: Lidocaine 4% PF 5 ML AMP ONE (11:12)
[2020-04-18] MEDS ORDERED: Lidocaine 1% PF 5 ML VIAL ONE (11:12)
[2020-04-18] MEDS ORDERED: Bupivacaine PF 0.75% SDV 10 ML ONE (11:12)
[2020-04-18] MEDS ORDERED: Triamcinolone 40 MG/ML VIAL ONE (11:12)
[2020-04-18] MEDS ORDERED: PROPOFOL 200 MG/20 ML VIAL ONE (11:13)
--- NOTE | 2020-04-18 11:26 | OP ---
DATE OF PROCEDURE: 04/18/2020 PRINCIPAL PREOPERATIVE DIAGNOSIS: Vitreous hemorrhage, left eye. POSTOPERATIVE DIAGNOSIS: Vitreous hemorrhage, left eye. PROCEDURES PERFORMED: 1. 25-gauge pars plana vitrectomy, left eye. 2. Panretinal photocoagulation, left eye. ESTIMATED BLOOD LOSS: None. SPECIMENS REMOVED: None. COMPLICATIONS: None. ANESTHESIA: MAC with sub-Tenon's block. DESCRIPTION OF PROCEDURE: The patient was identified in the preoperative holding area. The correct eye being the left eye was marked for surgery. The patient was taken to the operating room, where MAC anesthesia was induced. The left eye was prepped and draped in the usual sterile ophthalmic fashion for surgery. A wire-clip lid speculum was placed. An inferonasal conjunctival peritomy was fashioned with Scooter scissors for administration of sub-Tenon's block. The block consisted of 1:1 ratio of 4% lidocaine and 0.75% Marcaine. Total of 5 mL was administered. A standard 25-gauge pars plana vitrectomy platform was fashioned with trocars placed approximately 4 mm from the limbus. The infusion was noted to be within the vitreous cavity prior to being turned on to infusion pressure of 30 mmHg. The light pipe and microvitrector were introduced in the eye under visualization of the BIOM viewing system. A moderate central vitreous hemorrhage was noted obscuring adequate view of the fundus. A careful core vitrectomy was performed followed by peripheral shave vitrectomy, which allowed for improved visualization of the fundus. Following completion of vitrectomy, the endolaser was introduced in the eye to provide panretinal photocoagulation in typical fashion with sparing of the 3 and 9 o'clock meridians. The cannulas were sequentially removed, and the supranasal sclerotomy was sutured with 8-0 Vicryl suture. Following suturing, all sclerotomies were noted to be watertight. Subconjunctival Ancef and Kenalog were injected. The wire-clip lid speculum was removed followed by application of TobraDex ophthalmic ointment and a light patch and shield. The patient tolerated the procedure well and was taken to outpatient recovery in good condition. Job ID: [id number]
== END 2020-04-18 12:30 | disposition home or self-care (01) ==
LOC: SDC 07:59
PROVIDERS: ATTEND Ophthalmology Retina Specialist
PROC: 085F3ZZ Destruction of Left Retina, Percutaneous Approach (ICD-10-PCS; principal; 2020-04-18)
PROC: 08T53ZZ Resection of Left Vitreous, Percutaneous Approach (ICD-10-PCS; principal; 2020-04-18)
DX: H43.12 Vitreous hemorrhage, left eye (principal); Z79.02 Long term (current) use of antithrombotics/antiplatelets; Z79.4 Long term (current) use of insulin; Z79.82 Long term (current) use of aspirin; Z79.899 Other long term (current) drug therapy; Z91.018 Allergy to other foods
CPT/HCPCS: 36416; J0171; J1815; J2250; J3010